=== PATIENT | female | born 1980 | race Native Hawaiian/Other Pacific Islander ===

== ENCOUNTER 2017-01-10 14:04 | Outpatient (CLI) | payer SELFPAY ==
[2017-01-10 15:10] VITALS: BP 124/83
== END 2017-01-10 15:47 | disposition home or self-care (01) ==
LOC: TRG 14:04
PROVIDERS: ATTEND Obstetrics & Gynecology
DX: O47.03 False labor before 37 completed weeks of gestation, third trimester (principal); Z3A.34 34 weeks gestation of pregnancy
CPT/HCPCS: 59025

== ENCOUNTER 2017-01-16 20:58 | Inpatient (IN) | payer OTHER ==
[2017-01-16] MEDS ORDERED: LACTATED RINGERS 1,000 ML IV ONE (21:29)
[2017-01-16 21:52] LABS: Hematocrit 37.9 % (30.3-42.9); Hemoglobin 12.8 gm/dl (10.1-14.3); Mean Corpuscular HGB Conc 34 % (30-34); Mean Corpuscular Hemoglobin 30 pg (28-32); Mean Corpuscular Volume 89 fl (79-97); Platelet Count 210 K/mm3 (140-440); Red Blood Count 4.29 M/mm3 (3.65-5.03); Red Cell Distribution Width 14.1 % (13.2-15.2); White Blood Count 11.2 K/mm3 (4.5-11.0)
[2017-01-16 22:16] LABS: Alanine Aminotransferase 13 units/L (7-56); Lactate Dehydrogenase 262 units/L (91-180); Uric Acid 6.9 mg/dL (3.5-7.6)
--- NOTE | 2017-01-16 22:24 | History and Physical Report ---
History of Present Illness Date of examination: 01/16/17 Chief complaint: Painful contractions History of present illness: 36-year-old at 35+ weeks presents with painful contractions and elevated blood pressure in the severe range, she has had limited PNC and is a drop in. Patient is a [place] speaker only, history from daughter who speaks [place]. She apparently has been seen at a [place] [facility] but has only been there for 3 visits. Patient admits to having elevated blood pressure during this , appears to have had no workup. She currently denies headaches, scotomata or epigastric discomfort In triage, her blood pressure is in the 170s over 100s On exam she is 4-5 cm with bloody show. Past History Past Medical History: no pertinent history Past Surgical History: no surgical history [employer] History: denies: chlamydia, gonorrhea, hepatitis B, hepatitis C, herpes, HIV , syphilis Social history: single, full code. denies: smoking, alcohol abuse, prescription drug abuse, IV drug use - Obstetrical History Expected Date of Delivery: 02/20/17 Actual Gestation: 35 Week(s) 0 Day(s) : 7 Para: 6 Medications and Allergies Allergies Allergy/AdvReac Type Severity Reaction Status Date / Time No Known Allergies Allergy Verified 01/16/17 21:32 Active Meds: Active Medications Lactated Ringer's (Lactated Ringers) 1,000 mls @ 999 mls/hr IV BOLUS ONE Stop: 01/16/17 22:29 Review of Systems Constitutional: no weight gain, no fever, no chills Eyes: no diplopia, no photophobia, no tunnel vision, no blind spots Cardiovascular: high blood pressure, no chest pain, no orthopnea, no palpitations, no syncope, no lightheadedness, no shortness of breath, no dyspnea on exertion Respiratory: no shortness of breath, no dyspnea on exertion Gastrointestinal: abdominal pain, no nausea, no vomiting - Vital Signs Vital signs: Vital Signs Pulse Pulse Ox 79 97 01/16/17 21:19 01/16/17 21:19 Temp Pulse Resp BP Pulse Ox 80 170/82 83 L 01/16/17 22:13 01/16/17 22:13 01/16/17 21:39 - Physical Exam Cardiovascular: Regular rate, Normal S1, Normal S2 Lungs: Positive: Clear to auscultation Abdomen: Positive: normal appearance, soft. Negative: distention, tenderness, guarding, rigidity Genitourinary (Female): Positive: normal external genitalia Uterus: Positive: enlarged (EFW ~ 3400) Adnexa: both: normal Extremities: Positive: normal Results Result Diagrams: 01/16/17 21:40 01/16/17 21:40 Abnormal lab results 01/16/17 01/16/17 Range/Units 21:40 21:40 WBC 11.2 H (4.5-11.0) K/mm3 Creatinine 0.5 L (0.7-1.2) mg/dL Lactate Dehydrogenase 262 H (91-180) units/L All other labs normal. Assessment and Plan A: 36-year-old at 35 weeks in active labor Issues -Severe range blood pressures ?Pre-E - [place] speaker only -Grand multiparity -Limited care, no records available at this time P: -Admit -IV antihypertensives -Will start magnesium per protocol -Epidural when necessary -Anticipate normal vaginal delivery - Patient Problems (1) 35 weeks gestation of Current Visit: Yes Status: Acute (2) Hypertension affecting in third trimester Current Visit: Yes Status: Acute (3) Grand multipara Current Visit: Yes Status: Acute (4) Limited care Current Visit: Yes Status: Acute Qualifiers: Trimester: T
[2017-01-16] MEDS ORDERED: ePHEDrine SULFATE IV PRN (22:26)
[2017-01-16] MEDS ORDERED: MINERAL OIL PO PRN (22:26)
[2017-01-16] MEDS ORDERED: XYLOCAINE 2% INFILTRATI ONE (22:26)
[2017-01-16] MEDS ORDERED: ZOFRAN IV PRN (22:26)
[2017-01-16] MEDS ORDERED: BRETHINE SUB-Q PRN (22:26)
[2017-01-16] MEDS ORDERED: POLYCILLIN/NS 2 GM/100 ML 2 GM/100 ML BAG IV ONE (22:26)
[2017-01-16] MEDS ORDERED: SUBLIMAZE IV PRN (22:26)
[2017-01-16] MEDS ORDERED: BRETHINE IVP PRN (22:26)
[2017-01-16] MEDS ORDERED: APRESOLINE IV PRN (22:29)
[2017-01-16] MEDS ORDERED: MAGNESIUM SULFATE 4GM/100ML 4 GM/100 ML BAG IV ONE (22:29)
[2017-01-16] MEDS ORDERED: PITOCin/NS 30 UNIT/500ML 30 UNITS/500 ML BAG IV SCH ×2 (23:00)
[2017-01-16] MEDS ORDERED: PITOCin/NS 20 UNIT/1000ML DRIP 20 UNITS/1,000 ML BAG IV SCH (23:00)
[2017-01-16] MEDS ORDERED: MAGNESIUM SULFATE 40GM/1000ML 40 GM/1,000 ML BAG IV SCH (23:00)
[2017-01-16] MEDS ORDERED: NORMODYNE PO SCH (23:00)
[2017-01-16] MEDS: LACTATED RINGERS 1,000 ML IV SCH (23:00)
[2017-01-16 23:36] LABS: Urine Drugs of Abuse Note Disclamer
[2017-01-16 23:54] LABS: Bacteria,Urine 1+ /HPF (Negative); Bilirubin,Urine NEG (Negative); Blood,Urine MOD (Negative); Ketones,Urine NEG (Negative); Leukocyte Esterase,Urine NEG (Negative); Nitrite,Urine NEG (Negative); Urobilinogen,Urine < 2.0 mg/dL (<2.0); WBC,Urine < 1.0 /HPF (0.0-6.0)
[2017-01-17 00:45] LABS: HIV-1 Antigen p24 N (Non React); HIVR-1/2 Ab N (Non React)
[2017-01-17] MEDS ORDERED: CELESTONE SOLUSPAN IM SCH ×2 (02:00→10:00)
[2017-01-17] MEDS ORDERED: METHERGINE IM ONE (02:12)
[2017-01-17] MEDS ORDERED: CYTOTEC ONE (02:13)
--- NOTE | 2017-01-17 02:21 | Procedure Note ---
OB Delivery Note - Delivery Date of Delivery: 01/17/17 Surgeon: PILI MENA Estimated blood loss: other (600 cc) - Vaginal Delivery presentation: vertex Delivery position: OA Intrapartum events: no care, precipitous labor- <3hr, hemorrhage Delivery induction: none Delivery monitor: external FHT, external uterine Route of delivery: Delivery placenta: spontaneous Delivery cord: 3 umbilical vessels Episiotomy: none Delivery laceration: none Anesthesia: none - Infant A at 1 minute: 8 at 5 minutes: 8 Gender: Male (time of delivery to 2:02 AM, infant weight 5 lbs. 4 oz. or 2381 g)
[2017-01-17] MEDS ORDERED: MILK OF MAGNESIA PO PRN (02:23)
[2017-01-17] MEDS ORDERED: ANUCORT-HC PR PRN (02:23)
[2017-01-17] MEDS ORDERED: PHENERGAN PO PRN (02:23)
[2017-01-17] MEDS ORDERED: LANSINOH TP PRN (02:23)
[2017-01-17] MEDS ORDERED: BENADRYL PO PRN (02:23)
[2017-01-17] MEDS ORDERED: CYTOTEC PR ONE ×2 (02:23→02:30)
[2017-01-17] MEDS ORDERED: ZOFRAN IV PRN (02:23)
[2017-01-17] MEDS ORDERED: DULCOLAX PR PRN (02:23)
[2017-01-17] MEDS ORDERED: TYLENOL PO PRN (02:23)
[2017-01-17] MEDS ORDERED: NORCO 5/325 PO PRN (02:23)
[2017-01-17] MEDS ORDERED: PHENERGAN PR PRN (02:23)
[2017-01-17] MEDS ORDERED: TUCKS PAD TP PRN (02:23)
[2017-01-17] MEDS ORDERED: METHERGINE IM PRN (02:23)
[2017-01-17] MEDS ORDERED: SOLARCAINE ALOE TP PRN (02:23)
[2017-01-17] MEDS ORDERED: POLYCILLIN/NS 1 GM/50 ML 1 GM/50 ML BAG IV SCH (02:30)
[2017-01-17] MEDS: LACTATED RINGERS 1,000 ML IV SCH (02:59)
[2017-01-17] MEDS ORDERED: SODIUM CHLORIDE FLUSH SYRINGE 10 ML IV PRN (03:00)
[2017-01-17] MEDS ORDERED: PITOCin/NS 20 UNIT/1000ML DRIP 20 UNITS/1,000 ML BAG IV SCH (03:00)
[2017-01-17] MEDS: MOTRIN PO SCH ×3 (03:00→18:41)
[2017-01-17] MEDS: PRENATAL VITAMIN PO SCH (10:33)
[2017-01-17] MEDS: FEOSOL PO SCH (10:34)
[2017-01-17] MEDS: COLACE PO SCH (10:34)
[2017-01-17] MEDS: NORMODYNE PO SCH (11:07)
[2017-01-17] MEDS: SENOKOT S PO SCH (11:07)
[2017-01-17 15:19] LABS: Hematocrit 27.6 % (30.3-42.9); Hemoglobin 9.4 gm/dl (10.1-14.3)
[2017-01-18] MEDS ORDERED: M-M-R II VACCINE SUB-Q ONE (02:23)
[2017-01-18] MEDS ORDERED: BOOSTRIX IM ONE (06:00)
[2017-01-18] MEDS: MOTRIN PO SCH ×3 (07:00→13:00)
[2017-01-18] MEDS: COLACE PO SCH ×3 (07:06→22:59)
[2017-01-18] MEDS: NORMODYNE PO SCH ×3 (07:07→22:58)
[2017-01-18] MEDS: FEOSOL PO SCH ×2 (12:59→22:59)
[2017-01-18] MEDS: PRENATAL VITAMIN PO SCH (13:00)
[2017-01-18] MEDS: SENOKOT S PO SCH ×2 (14:25→22:57)
[2017-01-19] MEDS: MOTRIN PO SCH ×3 (04:59→13:00)
[2017-01-19] MEDS: COLACE PO SCH (10:34)
[2017-01-19] MEDS: PRENATAL VITAMIN PO SCH (10:34)
[2017-01-19] MEDS: NORMODYNE PO SCH (10:34)
[2017-01-19] MEDS: FEOSOL PO SCH (10:47)
--- NOTE | 2017-01-19 11:12 | Progress Note ---
Assessment and Plan - Patient Problems (1) (normal spontaneous vaginal delivery) Onset Date: 01/19/17 Current Visit: Yes Status: Resolved Plan to address problem: A: S/P - PPD #1 Doing well PIH - stable on Labetolol 200mg BID Asymptomatic anemia - stable P: May go home today (2) Acute blood loss anemia Onset Date: 01/19/17 Current Visit: Yes Status: Resolved Subjective - Subjective Date of service: 01/19/17 Principal diagnosis: s/p - PPD #2 Interval history: No complaints. Bleeding improved. Patient reports: appetite normal, voiding normally, pain well controlled, ambulating normally [place]: doing well, in NICU Objective - Vital Signs Latest vital signs: Vital Signs Temp Pulse Resp BP 01/19/17 10:34 66 120/67 01/19/17 10:25 98.6 F 66 18 120/67 01/19/17 08:21 98.4 F 78 20 108/64 01/19/17 04:15 98.4 F 64 20 119/59 01/18/17 23:57 98.6 F 65 20 107/64 01/18/17 22:58 80 113/79 01/18/17 20:00 98.5 F 76 20 113/79 01/18/17 17:05 98.7 F 84 20 104/64 01/18/17 13:35 98.0 F 86 20 110/52 01/18/17 13:04 68 119/66 Intake and Output 01/18/17 01/19/17 01/19/17 22:59 06:59 14:59 Intake Total 240 360 240 Balance 240 360 240 Intake: Oral 240 360 240 Other: Total, Intake Amount 240 120 240 # Voids Void 1 1 1 - Exam Breasts: Present: deferred Cardiovascular: Present: Regular rate Lungs: Present: Clear to auscultation Abdomen: Present: normal appearance, soft Uterus: Present: normal, firm, fundal height below umbilicus Extremities: Present: normal - Labs Labs: Laboratory Tests 01/16/17 01/16/17 01/16/17 02:40 02:40 02:40 WBC RBC Hgb Hct MCV MCH MCHC RDW Plt Count Creatinine Estimated GFR Uric Acid Magnesium AST ALT Lactate Dehydrogenase Urine Color Urine Turbidity Urine pH Ur Specific Shade Urine Protein Urine Glucose (UA) Urine Ketones Urine Blood Urine Nitrite Urine Bilirubin Urine Urobilinogen Ur Leukocyte Esterase Urine WBC (Auto) Urine RBC (Auto) Urine Bacteria (Auto) Urine Opiates Screen Urine Methadone Screen Ur Barbiturates Screen Ur Phencyclidine Scrn Ur Amphetamines Screen U Benzodiazepines Scrn Urine Cocaine Screen U Marijuana (THC) Screen Drugs of Abuse Note RPR Nonreactive Hep Bs Antigen Non-reactive Hepatitis C Antibody Non-reactive HIV 1&2 Antibody Rapid HIV P24 Antigen Rubella IgG Antibody Immune Blood Type Antibody Screen JASPREET Antibody Screen 01/16/17 01/16/17 01/16/17 02:40 02:40 21:40 WBC 11.2 H RBC 4.29 Hgb 12.8 Hct 37.9 MCV 89 MCH 30 MCHC 34 RDW 14.1 Plt Count 210 Creatinine Estimated GFR Uric Acid Magnesium AST ALT Lactate Dehydrogenase Urine Color Urine Turbidity Urine pH Ur Specific Shade Urine Protein Urine Glucose (UA) Urine Ketones Urine Blood Urine Nitrite Urine Bilirubin Urine Urobilinogen Ur Leukocyte Esterase Urine WBC (Auto) Urine RBC (Auto) Urine Bacteria (Auto) Urine Opiates Screen Urine Methadone Screen Ur Barbiturates Screen Ur Phencyclidine Scrn Ur Amphetamines Screen U Benzodiazepines Scrn Urine Cocaine Screen U Marijuana (THC) Screen Drugs of Abuse Note RPR Hep Bs Antigen Hepatitis C Antibody HIV 1&2 Antibody Rapid N HIV P24 Antigen N Rubella IgG Antibody Blood Type O POSITIVE Antibody Screen TNR JASPREET Antibody Screen Negative 01/16/17 01/16/17 01/16/17 21:40 22:49 22:49 WBC RBC Hgb Hct MCV MCH MCHC RDW Plt Count Creatinine 0.5 L Estimated GFR > 60 Uric Acid 6.9 Magnesium AST 21 ALT 13 Lactate Dehydrogenase 262 H Urine Color Straw Urine Turbidity Clear Urine pH 5.0 Ur Specific Shade 1.003 Urine Protein 30 mg/dl Urine Glucose (UA) Neg Urine Ketones Neg Urine Blood Mod Urine Nitrite Neg Urine Bilirubin Neg Urine Urobilinogen < 2.0 Ur Leukocyte Esterase Neg Urine WBC (Auto) < 1.0 Urine RBC (Auto) 2.0 Urine Bacteria (Auto) 1+ Urine Opiates Screen Presumptive negative Urine Methadone Screen Presumptive negative Ur Barbiturates Screen Presumptive negative Ur Phencyclidine Scrn Presumptive negative Ur Amphetamines Screen Presumptive negative U Benzodiazepines Scrn Presumptive negative Urine Cocaine Screen Presumptive negative U Marijuana (THC) Screen Presumptive negative Drugs of Abuse Note Disclamer RPR Hep Bs Antigen Hepatitis C Antibody HIV 1&2 Antibody Rapid HIV P24 Antigen Rubella IgG Antibody Blood Type Antibody Screen JASPREET Antibody Screen 01/17/17 01/17/17 06:24 15:02 WBC RBC Hgb 9.4 L D Hct 27.6 L D MCV MCH MCHC RDW Plt Count Creatinine Estimated GFR Uric Acid Magnesium 5.40 H AST ALT Lactate Dehydrogenase Urine Color Urine Turbidity Urine pH Ur Specific Shade Urine Protein Urine Glucose (UA) Urine Ketones Urine Blood Urine Nitrite Urine Bilirubin Urine Urobilinogen Ur Leukocyte Esterase Urine WBC (Auto) Urine RBC (Auto) Urine Bacteria (Auto) Urine Opiates Screen Urine Methadone Screen Ur Barbiturates Screen Ur Phencyclidine Scrn Ur Amphetamines Screen U Benzodiazepines Scrn Urine Cocaine Screen U Marijuana (THC) Screen Drugs of Abuse Note RPR Hep Bs Antigen Hepatitis C Antibody HIV 1&2 Antibody Rapid HIV P24 Antigen Rubella IgG Antibody Blood Type Antibody Screen JASPREET Antibody Screen
--- NOTE | 2017-01-19 11:31 | Discharge Summary ---
Providers - Providers Date of Admission: 01/16/17 22:35 Date of discharge: 01/19/17 Attending physician: GEORGIA RIZO MD Primary care physician: GEORGIA RIZO MD Hospitalization Reason for admission: active labor, IUP at term Delivery: Episiotomy: none Laceration: none Other procedures: none complications: none Discharge diagnosis: IUP at term delivered baby: male Hospital course: Unremarkable except for elevated BP's controlled with Labetolol 200mg BID. Condition at discharge: Good Disposition: DC-01 TO HOME OR SELFCARE - Discharge Diagnoses (1) (normal spontaneous vaginal delivery) Status: Resolved (2) Acute blood loss anemia Status: Resolved Plan - Discharge Medications Prescriptions: Ibuprofen [Motrin 600 MG tab] 600 mg PO Q8H PRN #30 tablet PRN Reason: Pain Labetalol [Normodyne TAB] 200 mg PO BID #60 tablet Multivitamin with Iron [Multivitamins with Iron] 1 each PO DAILY #30 tablet - Provider Discharge Summary Activity: routine, no sex for 6 weeks, no heavy lifting 4 weeks, no strenuous exercise Diet: routine Instructions: routine Additional instructions: [] Smoking cessation referral if applicable(refer to patient education folder for contact #) [] Refer to [facility] Booklet Call your doctor immediately for: * Fever > 100.5 * Heavy vaginal bleeding ( >1 pad per hour) * Severe persistent headache * Shortness of breath * Reddened, hot, painful area to leg or breast * Drainage or odor from incision. * Keep incision clean and dry at all times and follow doctor's instructions regarding bathing/showering Follow up in office in 1 week for BP check - Follow up plan Follow up: GEORGIA SCHUMACHER MD [Primary Care Provider] - 7 Days Forms: DARRIUS Discharge Summary
[2017-01-19 15:11] VITALS: BP 106/58
== END 2017-01-19 13:50 | disposition home or self-care (01) | DRG 774 ==
LOC: TRG 20:58 → LD 22:35 → OB 01-17 07:32
PROVIDERS: ADMIT Obstetrics & Gynecology; ATTEND Obstetrics & Gynecology
PROC: 10E0XZZ Delivery of Products of Conception, External Approach (ICD-10-PCS; principal; 2017-01-19)
DX: O16.3 Unspecified maternal hypertension, third trimester (principal); O72.1 Other immediate postpartum hemorrhage; D62 Acute posthemorrhagic anemia; Z3A.35 35 weeks gestation of pregnancy; Z37.0 Single live birth; O09.43 Supervision of pregnancy with grand multiparity, third trimester; O90.81 Anemia of the puerperium
CPT/HCPCS: 36415; 80307; 81001; 82565; 83615; 83735; 84450; 84460; 84550; 85014; 85018; 85027; 86592; 86706; 86762; 86803; 86850; 86900; 86901; 87806; 90707; 99211; G0463; J0290; J2210; J2590; J3475; J7120

== ENCOUNTER 2017-04-04 17:07 | Inpatient (IN) | payer OTHER ==
[2017-04-04 18:31] LABS: Basophils % (Auto) 0.3 % (0.0-1.8); Hematocrit 36.9 % (30.3-42.9); Hemoglobin 11.8 gm/dl (10.1-14.3); Mean Corpuscular HGB Conc 32 % (30-34); Mean Corpuscular Volume 76 fl (79-97); Platelet Count 275 K/mm3 (140-440); Red Blood Count 4.84 M/mm3 (3.65-5.03); Red Cell Distribution Width 19.2 % (13.2-15.2); White Blood Count 4.1 K/mm3 (4.5-11.0)
[2017-04-04 18:38] LABS: Mean Corpuscular Hemoglobin 24 pg (28-32)
[2017-04-04 18:51] LABS: Bacteria,Urine 4+ /HPF (Negative); Bilirubin,Urine NEG (Negative); Blood,Urine NEG (Negative); Ketones,Urine NEG (Negative); Leukocyte Esterase,Urine SM (Negative); Mucus,Urine FEW /HPF; Nitrite,Urine POS (Negative); Protein,Urine <15 mg/dL mg/dL (Negative); RBC,Urine < 1.0 /HPF (0.0-6.0); Urobilinogen,Urine < 2.0 mg/dL (<2.0)
[2017-04-04 18:53] LABS: Albumin 4.5 g/dL (3.9-5); Albumin/Globulin Ratio 1.5 %; Alkaline Phosphatase 227 units/L (35-129); Anion Gap 19 mmol/L; BUN/Creatinine Ratio 23; Blood Urea Nitrogen 7 mg/dL (7-17); Calcium 9.2 mg/dL (8.4-10.2); Carbon Dioxide 23 mmol/L (22-30); Chloride 100.1 mmol/L (98-107); Glucose 107 mg/dL (65-100); Lipase 53 units/L (13-60); Potassium 3.9 mmol/L (3.6-5.0); Sodium 138 mmol/L (137-145); Total Protein 7.5 g/dL (6.3-8.2)
[2017-04-04 19:17] LABS: Alanine Aminotransferase 2730 units/L (7-56)
[2017-04-05] MEDS ORDERED: NACL 0.9% 1000 ML 1,000 ML IV ONE (06:21)
[2017-04-05] MEDS ORDERED: NACL ONE (06:38)
[2017-04-05 07:46] LABS: INR 1.02 (0.87-1.13)
[2017-04-05 07:47] LABS: Partial Thromboplastin Time 33.4 Sec. (24.2-36.6)
--- NOTE | 2017-04-05 08:44 | Cat Scan Report ---
CT ABDOMEN AND PELVIS WITH CONTRAST INDICATION: Abdominal pain, jaundice. COMPARISON: None similar. FINDINGS: Abdomen and pelvis CT performed following intravenous administration of 100 cc of Omnipaque 300. LUNG BASES: Nonspecific distal esophageal wall prominence/thickening, not excluded for gastroesophageal reflux and/or hiatal hernia, amongst others. Right hemidiaphragm minimally elevated. ABDOMEN: Contracted gallbladder with surrounding hypodense fluid extending to jeff hepatis. Patent veins. Tiny splenic calcified granuloma. Otherwise unremarkable spleen, liver, pancreas, adrenals, aorta, IVC and kidneys. Nonopacified GI tract evaluation limited, though grossly nonobstructive. As on axial images 90-140, series 2, slight exaggerated duodenal wall thickness/prominence may be secondary to suboptimal distention versus extension from adjacent gallbladder/jeff hepatis. No significant ascites. Few subcentimeter mesenteric lymph nodes. Normal appendix. Normal caliber colon. Mild ascending colon stool. PELVIS: Urinary bladder, uterus, adnexa/ovaries and rectosigmoid within normal limits. No free fluid or size significant adenopathy. Mild sclerosis along iliac aspect of SI joints noted. CONCLUSION: 1. Contracted gallbladder with surrounding fluid. Acute cholecystitis may be correlated for clinically in an appropriate setting. No radiopaque gallstones or significant biliary or pancreatic duct dilation though identified. 2. Few other incidental findings, as above. Thank you for the opportunity to participate in this patient's care.
[2017-04-05] MEDS ORDERED: DULCOLAX PR PRN (09:31)
[2017-04-05] MEDS ORDERED: ZOFRAN IM PRN (10:14)
--- NOTE | 2017-04-05 10:16 | History and Physical Report ---
<BISI DAMON - Last Filed: 04/05/17 15:02> History of Present Illness Date of examination: 04/05/17 Date of admission: 04/05/2017 Chief complaint: Jaundice History of present illness: Patient is a 36 years old female with past medical history of hypertension and two month of who presents to the emergency department with chief complaint of Jaundice. Patient noticed days ago changed her eyes color to yellow and she was hoping that they will clear up eventually, but they get worst. Patient went yesterday to her primary care provider and was referred to [facility] for jaundice, hypertension, and increased bilirubin. She also reported severe pruritis for the past 3 days. Patient two month with 8 month premature healthy baby, she stated that she had UTI and hypertension while in . She defines abdominal pain at present time.She denies a recent history of fever, diarrhea, hemoptysis, melena, or hematochezia. She denies a known history of hemorrhoids, diverticulitis, colon cancer, peptic ulcer disease, gastritis, acid reflux, gall bladder disease or cholelithiasis. She denies a history of smoking or alcohol consumption. Past History Past Medical History: hypertension Past Surgical History: No surgical history Social history: lives with family. denies: smoking, alcohol abuse Family history: hypertension Medications and Allergies Allergies Allergy/AdvReac Type Severity Reaction Status Date / Time No Known Allergies Allergy Verified 04/04/17 18:04 Home Medications Medication Instructions Recorded Confirmed Last Taken Type No Known Home Medications [No 04/05/17 04/05/17 Unknown History Reported Home Medications] Active Meds: Active Medications Bisacodyl (Dulcolax) 10 mg [place] QDAY PRN PRN Reason: Constipation unrelieved by MOM Enoxaparin Sodium (Lovenox) 40 mg SUB-Q QDAY KOLBY Sodium Chloride (Nacl 0.9% 1000 Ml) 1,000 mls @ 125 mls/hr IV ONCE ONE Stop: 04/05/17 14:20 Last Admin: 04/05/17 06:34 Dose: 125 mls/hr Sodium Chloride (Nacl 0.9% 1000 Ml) 1,000 mls @ 100 mls/hr IV DIRECT KOLBY Ondansetron HCl (Zofran) 4 mg IM Q4H PRN PRN Reason: Nausea And Vomiting Review of Systems Constitutional: no weight gain, no fever, no sweats Eyes: bilateral: itching, other (jaundice) Ears, nose, mouth and throat: no ear discharge, no tinnitis, no decreased hearing, no nose pain, no nasal congestion Breasts: no change in shape, no swelling Cardiovascular: no chest pain, no orthopnea, no palpitations, no rapid/ irregular heart beat, no edema, no syncope Respiratory: no cough with sputum, no excessive sputum, no hemoptysis, no shortness of breath Gastrointestinal: jaundice, no diarrhea, no constipation, no change in bowel habits, no hematemesis, no coffee ground emesis, no hematochezia Genitourinary Female: no menorrhagia, no dysuria, no urinary frequency, no urgency, no stress incontinence Musculoskeletal: no shooting arm pain, no arm numbness/tingling, no low back pain, no shooting leg pain Integumentary: pruritis, jaundice, no redness, no sores Neurological: no weakness, no parathesias, no numbness, no tingling, no seizures Psychiatric: no change in sleep habits, no sleep disturbances, no insomnia, no hypersomnia, no change in appetite Endocrine: no excessive thirst, no polydipsia, no polyuria, no nocturia Hematologic/Lymphatic: no easy bruising, no easy bleeding Allergic/Immunologic: no urticaria, no allergic rhinitis Exam - Constitutional Vitals: Temp Pulse Resp BP Pulse Ox 98.4 F 54 L 24 138/74 100 04/05/17 05:42 04/05/17 06:00 04/05/17 06:00 04/05/17 06:00 04/05/17 06:00 General appearance: Present: no acute distress - EENT Eyes: Present: PERRL ENT: hearing intact, other (jaundice) - Neck Neck: Present: supple - Respiratory Respiratory effort: normal Respiratory: bilateral: CTA - Cardiovascular Rhythm: regular Heart Sounds: Present: S1 & S2 - Abdominal General gastrointestinal: Present: soft, non-tender Female genitourinary: Present: deferred - Rectal Rectal Exam: deferred - Integumentary Integumentary: Present: clear, warm, dry - Musculoskeletal Musculoskeletal: strength equal bilaterally - Psychiatric Psychiatric: appropriate mood/affect - Neurologic Neurologic: CNII-XII intact - Allied Health Allied health notes reviewed: nursing Results - Labs CBC & Chem 7: 04/04/17 18:20 04/04/17 18:20 Labs: Laboratory Last Values WBC 4.1 K/mm3 (4.5-11.0) L 04/04/17 18:20 RBC 4.84 M/mm3 (3.65-5.03) 04/04/17 18:20 Hgb 11.8 gm/dl (10.1-14.3) 04/04/17 18:20 Hct 36.9 % (30.3-42.9) 04/04/17 18:20 MCV 76 fl (79-97) L 04/04/17 18:20 MCH 24 pg (28-32) L 04/04/17 18:20 MCHC 32 % (30-34) 04/04/17 18:20 RDW 19.2 % (13.2-15.2) H 04/04/17 18:20 Plt Count 275 K/mm3 (140-440) 04/04/17 18:20 Lymph % (Auto) 32.6 % (13.4-35.0) 04/04/17 18:20 [place] % (Auto) 10.0 % (0.0-7.3) H 04/04/17 18:20 Eos % (Auto) 0.0 % (0.0-4.3) 04/04/17 18:20 Baso % (Auto) 0.3 % (0.0-1.8) 04/04/17 18:20 Lymph # 1.3 K/mm3 (1.2-5.4) 04/04/17 18:20 [place] # 0.4 K/mm3 (0.0-0.8) 04/04/17 18:20 Eos # 0.0 K/mm3 (0.0-0.4) 04/04/17 18:20 Baso # 0.0 K/mm3 (0.0-0.1) 04/04/17 18:20 Seg Neutrophils % 57.1 % (40.0-70.0) 04/04/17 18:20 Seg Neutrophils # 2.4 K/mm3 (1.8-7.7) 04/04/17 18:20 PT 13.9 Sec. (12.2-14.9) 04/05/17 07:24 INR 1.02 (0.87-1.13) 04/05/17 07:24 APTT 33.4 Sec. (24.2-36.6) 04/05/17 07:24 Sodium 138 mmol/L (137-145) 04/04/17 18:20 Potassium 3.9 mmol/L (3.6-5.0) 04/04/17 18:20 Chloride 100.1 mmol/L (98-107) 04/04/17 18:20 Carbon Dioxide 23 mmol/L (22-30) 04/04/17 18:20 Anion Gap 19 mmol/L 04/04/17 18:20 BUN 7 mg/dL (7-17) 04/04/17 18:20 Creatinine 0.3 mg/dL (0.7-1.2) L 04/04/17 18:20 Estimated GFR > 60 ml/min 04/04/17 18:20 BUN/Creatinine Ratio 23 % 04/04/17 18:20 Glucose 107 mg/dL (65-100) H 04/04/17 18:20 Calcium 9.2 mg/dL (8.4-10.2) 04/04/17 18:20 Magnesium 1.90 mg/dL (1.7-2.3) 04/05/17 07:24 Total Bilirubin 6.20 mg/dL (0.1-1.2) H 04/04/17 18:20 AST 1857 units/L (5-40) H 04/04/17 18:20 ALT 2730 units/L (7-56) H 04/04/17 18:20 Alkaline Phosphatase 227 units/L (35-129) H 04/04/17 18:20 Ammonia 29.0 umol/L (25-60) 04/05/17 07:24 Total Protein 7.5 g/dL (6.3-8.2) 04/04/17 18:20 Albumin 4.5 g/dL (3.9-5) 04/04/17 18:20 Albumin/Globulin Ratio 1.5 % 04/04/17 18:20 Lipase 53 units/L (13-60) 04/04/17 18:20 Urine Color June (Yellow) 04/04/17 Unknown Urine Turbidity Clear (Clear) 04/04/17 Unknown Urine pH 6.0 (5.0-7.0) 04/04/17 Unknown Ur Specific [place] 1.008 (1.003-1.030) 04/04/17 Unknown Urine Protein <15 mg/dl mg/dL (Negative) 04/04/17 Unknown Urine Glucose (UA) Neg mg/dL (Negative) 04/04/17 Unknown Urine Ketones Neg mg/dL (Negative) 04/04/17 Unknown Urine Blood Neg (Negative) 04/04/17 Unknown Urine Nitrite Pos (Negative) 04/04/17 Unknown Urine Bilirubin Neg (Negative) 04/04/17 Unknown Urine Urobilinogen < 2.0 mg/dL (<2.0) 04/04/17 Unknown Ur Leukocyte Esterase Sm (Negative) 04/04/17 Unknown Urine WBC (Auto) 13.0 /HPF (0.0-6.0) H 04/04/17 Unknown Urine RBC (Auto) < 1.0 /HPF (0.0-6.0) 04/04/17 Unknown U Epithel Cells (Auto) 1.0 /HPF (0-13.0) 04/04/17 Unknown Urine Bacteria (Auto) 4+ /HPF (Negative) 04/04/17 Unknown Urine Mucus Few /HPF 04/04/17 Unknown Hepatitis A IgM Ab Non-reactive (NonReactive) 04/05/17 07:24 Hep Bs Antigen Non-reactive (Negative) 04/05/17 07:24 Hep B Core IgM Ab Non-reactive (NonReactive) 04/05/17 07:24 Hepatitis C Antibody Non-reactive (NonReactive) 04/05/17 07:24 - Imaging and Cardiology CT scan - abdomen: image reviewed (contracted gallbladder with surrounding fluid. Acute cholecystitis) Assessment and Plan Assessment and plan: Patient is a 36 years old female with past medical history of hypertension and two month of who presents to the emergency department with chief complaint of Jaundice. Patient noticed days ago changed her eyes color to yellow and she was hoping that they will clear up eventually, but they get worst. Patient went yesterday to her primary care provider and was referred to [facility] for jaundice, hypertension, and increased bilirubin. Acute cholecystitis Contracted gallbladder with surrounding fluid. Acute cholecystitis Nothing by mouth IV fluid hydration Initiated empiric IV Zosyn contracted gallbladder with surrounding fluid. Acute cholecystitis HIDA scan ordered we will consider General surgery after findings. GI consulted Transaminitis Etiology unknown Closely monitor liver function GI consulted Jaundice and pruritis Secondary to Transaminitis Closely monitor liver function Benadryl for itching GI Consulted Hypertension. Continue on home antihypertensive medication Closely monitor blood pressure Status post Patient delivered two month ago OBGYN consulted DVT prophylaxis Lovenox Advance Directives: Yes VTE prophylaxis?: Chemical Contraindication Mechanical VTE Prophylaxis: Treatment Not Indicated Plan of care discussed with patient/family: Yes <MAC NARVAEZ Karen - Last Filed: 04/05/17 23:08> History of Present Illness Date of admission: 04/05/17 09:32 Medications and Allergies Active Meds: Active Medications Bisacodyl (Dulcolax) 10 mg WV QDAY PRN PRN Reason: Constipation unrelieved by MOM Diphenhydramine HCl (Benadryl) 25 mg IV Q6H PRN PRN Reason: Itching Enoxaparin Sodium (Lovenox) 40 mg SUB-Q QDAY KOLBY Last Admin: 04/05/17 11:29 Dose: Not Given Sodium Chloride (Nacl 0.9% 1000 Ml) 1,000 mls @ 100 mls/hr IV DIRECT KOLBY Piperacillin Sod/Tazobactam Sod (Zosyn/Ns 4.5gm/100ml) 4.5 gm in 100 mls @ 200 mls/hr IV Q8HR KOLBY PRN Reason: Protocol Labetalol HCl (Normodyne) 100 mg PO BID KOLBY Ondansetron HCl (Zofran) 4 mg IM Q4H PRN PRN Reason: Nausea And Vomiting Exam - Constitutional Vitals: Temp Pulse Resp BP Pulse Ox 98.8 F 59 L 18 109/54 99 04/05/17 22:02 04/05/17 22:02 04/05/17 22:02 04/05/17 22:02 04/05/17 22:02 Results - Labs CBC & Chem 7: 04/04/17 18:20 04/04/17 18:20 Labs: Laboratory Last Values WBC 4.1 K/mm3 (4.5-11.0) L 04/04/17 18:20 RBC 4.84 M/mm3 (3.65-5.03) 04/04/17 18:20 Hgb 11.8 gm/dl (10.1-14.3) 04/04/17 18:20 Hct 36.9 % (30.3-42.9) 04/04/17 18:20 MCV 76 fl (79-97) L 04/04/17 18:20 MCH 24 pg (28-32) L 04/04/17 18:20 MCHC 32 % (30-34) 04/04/17 18:20 RDW 19.2 % (13.2-15.2) H 04/04/17 18:20 Plt Count 275 K/mm3 (140-440) 04/04/17 18:20 Lymph % (Auto) 32.6 % (13.4-35.0) 04/04/17 18:20 [place] % (Auto) 10.0 % (0.0-7.3) H 04/04/17 18:20 Eos % (Auto) 0.0 % (0.0-4.3) 04/04/17 18:20 Baso % (Auto) 0.3 % (0.0-1.8) 04/04/17 18:20 Lymph # 1.3 K/mm3 (1.2-5.4) 04/04/17 18:20 [place] # 0.4 K/mm3 (0.0-0.8) 04/04/17 18:20 Eos # 0.0 K/mm3 (0.0-0.4) 04/04/17 18:20 Baso # 0.0 K/mm3 (0.0-0.1) 04/04/17 18:20 Seg Neutrophils % 57.1 % (40.0-70.0) 04/04/17 18:20 Seg Neutrophils # 2.4 K/mm3 (1.8-7.7) 04/04/17 18:20 PT 13.9 Sec. (12.2-14.9) 04/05/17 21:18 INR 1.02 (0.87-1.13) 04/05/17 21:18 APTT 33.4 Sec. (24.2-36.6) 04/05/17 07:24 Sodium 138 mmol/L (137-145) 04/04/17 18:20 Potassium 3.9 mmol/L (3.6-5.0) 04/04/17 18:20 Chloride 100.1 mmol/L (98-107) 04/04/17 18:20 Carbon Dioxide 23 mmol/L (22-30) 04/04/17 18:20 Anion Gap 19 mmol/L 04/04/17 18:20 BUN 7 mg/dL (7-17) 04/04/17 18:20 Creatinine 0.3 mg/dL (0.7-1.2) L 04/04/17 18:20 Estimated GFR > 60 ml/min 04/04/17 18:20 BUN/Creatinine Ratio 23 % 04/04/17 18:20 Glucose 107 mg/dL (65-100) H 04/04/17 18:20 Calcium 9.2 mg/dL (8.4-10.2) 04/04/17 18:20 Magnesium 1.90 mg/dL (1.7-2.3) 04/05/17 07:24 Total Bilirubin 6.20 mg/dL (0.1-1.2) H 04/04/17 18:20 AST 1857 units/L (5-40) H 04/04/17 18:20 ALT 2730 units/L (7-56) H 04/04/17 18:20 Alkaline Phosphatase 227 units/L (35-129) H 04/04/17 18:20 Ammonia 29.0 umol/L (25-60) 04/05/17 07:24 Total Protein 7.5 g/dL (6.3-8.2) 04/04/17 18:20 Albumin 4.5 g/dL (3.9-5) 04/04/17 18:20 Albumin/Globulin Ratio 1.5 % 04/04/17 18:20 Lipase 53 units/L (13-60) 04/04/17 18:20 Urine Color June (Yellow) 04/04/17 Unknown Urine Turbidity Clear (Clear) 04/04/17 Unknown Urine pH 6.0 (5.0-7.0) 04/04/17 Unknown Ur Specific [place] 1.008 (1.003-1.030) 04/04/17 Unknown Urine Protein <15 mg/dl mg/dL (Negative) 04/04/17 Unknown Urine Glucose (UA) Neg mg/dL (Negative) 04/04/17 Unknown Urine Ketones Neg mg/dL (Negative) 04/04/17 Unknown Urine Blood Neg (Negative) 04/04/17 Unknown Urine Nitrite Pos (Negative) 04/04/17 Unknown Urine Bilirubin Neg (Negative) 04/04/17 Unknown Urine Urobilinogen < 2.0 mg/dL (<2.0) 04/04/17 Unknown Ur Leukocyte Esterase Sm (Negative) 04/04/17 Unknown Urine WBC (Auto) 13.0 /HPF (0.0-6.0) H 04/04/17 Unknown Urine RBC (Auto) < 1.0 /HPF (0.0-6.0) 04/04/17 Unknown U Epithel Cells (Auto) 1.0 /HPF (0-13.0) 04/04/17 Unknown Urine Bacteria (Auto) 4+ /HPF (Negative) 04/04/17 Unknown Urine Mucus Few /HPF 04/04/17 Unknown Urine HCG, Qual Negative (Negative) 04/05/17 16:50 Acetaminophen < 15.0 ug/mL (10.0-30.0) 04/05/17 21:18 Hepatitis A IgM Ab Non-reactive (NonReactive) 04/05/17 07:24 Hep Bs Antigen Non-reactive (Negative) 04/05/17 07:24 Hep B Core IgM Ab Non-reactive (NonReactive) 04/05/17 07:24 Hepatitis C Antibody Non-reactive (NonReactive) 04/05/17 07:24 Assessment and Plan Assessment and plan: I saw and evaluated the patient. I agree with the findings and the plan of care as documented in the Nurse Practitioner's~note, with the following corrections and additions. Patient seen and examined, jaundiced. differential inlcudes post liver disease, post eclamsia although less likely. Will await [facility] evaluation and GI eval. empiric abx.
[2017-04-05] MEDS: LOVENOX SUB-Q SCH (11:29)
[2017-04-05] MEDS ORDERED: BENADRYL IV PRN (14:20)
--- NOTE | 2017-04-05 15:18 | Emergency Department Report ---
ED General Adult HPI - General Chief complaint: Abdominal Pain Stated complaint: HIGH BLOOD PRESSURE Time Seen by Provider: 04/05/17 06:20 Source: patient, family Mode of arrival: Ambulatory Limitations: Language Barrier - History of Present Illness Initial comments: The patient was seen by her primary care provider noticed that she was jaundice and told her she should seek emergency department evaluation. She complains of some epigastric discomfort but largely her jaundice has been painless. She is 2 months or down. She has a history of hypertension on labetalol. He states that she has had the onset of her menses since her car around last week. She has had some generalized pruritus. She does not complain of nausea or vomiting. She is from [place] but has not recently traveled. -: days(s) Location: abdomen Radiation: non-radiation Severity scale (0 -10): 4 Quality: aching Consistency: intermittent, now resolved Improves with: none Worsens with: none Associated Symptoms: nausea/vomiting (no vomiting occasional nausea). denies: fever/chills Treatments Prior to Arrival: none - Related Data Home Medications Medication Instructions Recorded Confirmed Last Taken No Known Home Medications [No 04/05/17 04/05/17 Unknown Reported Home Medications] Allergies Allergy/AdvReac Type Severity Reaction Status Date / Time No Known Allergies Allergy Verified 04/04/17 18:04 ED Review of Systems ROS: Stated complaint: HIGH BLOOD PRESSURE Other details as noted in HPI Constitutional: denies: chills, fever Eyes: denies: eye pain, eye discharge, vision change ENT: denies: ear pain, throat pain Respiratory: denies: cough, shortness of breath, wheezing Cardiovascular: denies: chest pain, palpitations Endocrine: no symptoms reported Gastrointestinal: abdominal pain, nausea. denies: diarrhea Genitourinary: denies: urgency, dysuria, discharge Musculoskeletal: denies: back pain, joint swelling, arthralgia Skin: denies: rash, lesions Neurological: denies: headache, weakness, paresthesias Psychiatric: denies: anxiety, depression Hematological/Lymphatic: denies: easy bleeding, easy bruising ED Past Medical Hx - Past Medical History Previous Medical History?: No Hx Hypertension: No Hx Congestive Heart Failure: No Hx Diabetes: No Hx Deep Vein Thrombosis: No Hx Renal Disease: No Hx Sickle Cell Disease: No Hx Seizures: No Hx Asthma: No Hx COPD: No Hx HIV: No - Surgical History Past Surgical History?: No - Social History Smoking Status: Never Smoker Substance Use Type: None - Medications Home Medications: Home Medications Medication Instructions Recorded Confirmed Last Taken Type No Known Home Medications [No 04/05/17 04/05/17 Unknown History Reported Home Medications] ED Physical Exam - General Limitations: No Limitations General appearance: alert, in no apparent distress - Head Head exam: Present: atraumatic, normocephalic - Eye Eye exam: Present: normal appearance - ENT ENT exam: Present: mucous membranes moist - Neck Neck exam: Present: normal inspection - Respiratory Respiratory exam: Present: normal lung sounds bilaterally. Absent: respiratory distress - Cardiovascular Cardiovascular Exam: Present: regular rate, normal rhythm. Absent: systolic murmur, diastolic murmur, rubs, gallop - GI/Abdominal GI/Abdominal exam: Present: soft, normal bowel sounds. Absent: distended, tenderness, guarding, rebound, rigid, organomegaly, mass, bruit, pulsatile mass , hernia - Extremities Exam Extremities exam: Present: normal inspection - Back Exam Back exam: Present: normal inspection - Neurological Exam Neurological exam: Present: alert, oriented X3, CN II-XII intact. Absent: motor sensory deficit - Psychiatric Psychiatric exam: Present: normal affect, normal mood - Skin Skin exam: Present: warm, dry, intact, normal color. Absent: rash ED Course Vital Signs 04/04/17 04/05/17 04/05/17 18:04 01:30 05:30 Temperature 99.5 F 99.0 F Pulse Rate 72 74 Respiratory 18 12 Rate Blood Pressure 128/81 161/91 Blood Pressure [Left] O2 Sat by Pulse 98 99 100 Oximetry 04/05/17 04/05/17 04/05/17 05:42 06:00 07:27 Temperature 98.4 F Pulse Rate 61 54 L Respiratory 18 24 Rate Blood Pressure 138/74 130/75 Blood Pressure 136/71 [Left] O2 Sat by Pulse 100 100 99 Oximetry 04/05/17 04/05/17 04/05/17 08:00 09:01 10:01 Temperature Pulse Rate 51 L 61 62 Respiratory 25 H 18 22 Rate Blood Pressure 129/65 116/72 115/76 Blood Pressure [Left] O2 Sat by Pulse 98 100 100 Oximetry 04/05/17 04/05/17 04/05/17 11:00 12:00 13:01 Temperature Pulse Rate 68 63 57 L Respiratory 18 23 25 H Rate Blood Pressure 142/83 136/76 132/81 Blood Pressure [Left] O2 Sat by Pulse 100 98 100 Oximetry 04/05/17 14:01 Temperature Pulse Rate 73 Respiratory 22 Rate Blood Pressure 138/80 Blood Pressure [Left] O2 Sat by Pulse 98 Oximetry - Reevaluation(s) Reevaluation #1: Patient was found to have significant transaminitis and hyperbilirubinemia. A CT of her abdomen was obtained and she was admitted by the hospitalist service. The CT showed some shyam-cholecystic fluid but no obvious inflammatory process. Personally I think cholecystitis is unlikely. I did send a hepatitis profile. The patient was admitted in stable condition for further evaluation. 04/05/17 15:17 ED Medical Decision Making - Lab Data Result diagrams: 04/04/17 18:20 04/04/17 18:20 Laboratory Results - last 24 hr 04/04/17 04/04/17 04/04/17 18:20 18:20 Unknown WBC 4.1 L RBC 4.84 Hgb 11.8 Hct 36.9 MCV 76 L MCH 24 L MCHC 32 RDW 19.2 H Plt Count 275 Lymph % (Auto) 32.6 [place] % (Auto) 10.0 H Eos % (Auto) 0.0 Baso % (Auto) 0.3 Lymph # 1.3 [place] # 0.4 Eos # 0.0 Baso # 0.0 Seg Neutrophils % 57.1 Seg Neutrophils # 2.4 PT INR APTT Sodium 138 Potassium 3.9 Chloride 100.1 Carbon Dioxide 23 Anion Gap 19 BUN 7 Creatinine 0.3 L Estimated GFR > 60 BUN/Creatinine Ratio 23 Glucose 107 H Calcium 9.2 Magnesium Total Bilirubin 6.20 H AST 1857 H ALT 2730 H Alkaline Phosphatase 227 H Ammonia Total Protein 7.5 Albumin 4.5 Albumin/Globulin Ratio 1.5 Lipase 53 Urine Color [place] Urine Turbidity Clear Urine pH 6.0 Ur Specific [place] 1.008 Urine Protein <15 mg/dl Urine Glucose (UA) Neg Urine Ketones Neg Urine Blood Neg Urine Nitrite Pos Urine Bilirubin Neg Urine Urobilinogen < 2.0 Ur Leukocyte Esterase Sm Urine WBC (Auto) 13.0 H Urine RBC (Auto) < 1.0 U Epithel Cells (Auto) 1.0 Urine Bacteria (Auto) 4+ Urine Mucus Few Hepatitis A IgM Ab Hep Bs Antigen Hep B Core IgM Ab Hepatitis C Antibody 04/05/17 04/05/17 04/05/17 07:24 07:24 07:24 WBC RBC Hgb Hct MCV MCH MCHC RDW Plt Count Lymph % (Auto) [place] % (Auto) Eos % (Auto) Baso % (Auto) Lymph # [place] # Eos # Baso # Seg Neutrophils % Seg Neutrophils # PT 13.9 INR 1.02 APTT 33.4 Sodium Potassium Chloride Carbon Dioxide Anion Gap BUN Creatinine Estimated GFR BUN/Creatinine Ratio Glucose Calcium Magnesium 1.90 Total Bilirubin AST ALT Alkaline Phosphatase Ammonia Total Protein Albumin Albumin/Globulin Ratio Lipase Urine Color Urine Turbidity Urine pH Ur Specific [place] Urine Protein Urine Glucose (UA) Urine Ketones Urine Blood Urine Nitrite Urine Bilirubin Urine Urobilinogen Ur Leukocyte Esterase Urine WBC (Auto) Urine RBC (Auto) U Epithel Cells (Auto) Urine Bacteria (Auto) Urine Mucus Hepatitis A IgM Ab Non-reactive Hep Bs Antigen Non-reactive Hep B Core IgM Ab Non-reactive Hepatitis C Antibody Non-reactive 04/05/17 07:24 WBC RBC Hgb Hct MCV MCH MCHC RDW Plt Count Lymph % (Auto) [place] % (Auto) Eos % (Auto) Baso % (Auto) Lymph # [place] # Eos # Baso # Seg Neutrophils % Seg Neutrophils # PT INR APTT Sodium Potassium Chloride Carbon Dioxide Anion Gap BUN Creatinine Estimated GFR BUN/Creatinine Ratio Glucose Calcium Magnesium Total Bilirubin AST ALT Alkaline Phosphatase Ammonia 29.0 Total Protein Albumin Albumin/Globulin Ratio Lipase Urine Color Urine Turbidity Urine pH Ur Specific [place] Urine Protein Urine Glucose (UA) Urine Ketones Urine Blood Urine Nitrite Urine Bilirubin Urine Urobilinogen Ur Leukocyte Esterase Urine WBC (Auto) Urine RBC (Auto) U Epithel Cells (Auto) Urine Bacteria (Auto) Urine Mucus Hepatitis A IgM Ab Hep Bs Antigen Hep B Core IgM Ab Hepatitis C Antibody - Radiology Data Radiology results: report reviewed Critical care attestation.: If time is entered above; I have spent that time in minutes in the direct care of this critically ill patient, excluding procedure time. ED Disposition Clinical Impression: Transaminitis, Hyperbilirubinemia Disposition: OP ADMIT IP TO THIS HOSP Is pt being admited?: Yes Does the pt Need Aspirin: No Time of Disposition: 15:19
--- NOTE | 2017-04-05 20:50 | Gastroenterology Consultation ---
History of Present Illness - Reason for Consult Consult date: 04/05/17 abnormal liver enzymes, jaundice Requesting physician: BISI DAMON - History of Present Illness Ms Royce Arana is a 36 yo female who presents with jaundice. Patient's daughter at bedside who helps provide history (also gathered from chart review). Patient has a h/o htn, otherwise no known medical problems, who started experiencing upper abdominal discomfort and pain with inspiration. She noticed eyes changing color ~3 days ago. She was instructed by PCP to go to ED today after clinic appt. She denies h/o known liver disease. Denies risk factors for viral hepatitis, recent travel, new medications, or alcohol intake. She does take ibuprofen on occasion, and may have had dose of tylenol but otherwise denies acetaminophen intake. No known family h/o liver disease. No change in mental status. Past History Past Medical History: hypertension Past Surgical History: No surgical history Social history: lives with family. denies: smoking, alcohol abuse Family history: hypertension Medications and Allergies Allergies Allergy/AdvReac Type Severity Reaction Status Date / Time No Known Allergies Allergy Verified 04/04/17 18:04 Home Medications Medication Instructions Recorded Confirmed Last Taken Type No Known Home Medications [No 04/05/17 04/05/17 Unknown History Reported Home Medications] Active Meds: Active Medications Bisacodyl (Dulcolax) 10 mg NM QDAY PRN PRN Reason: Constipation unrelieved by MOM Diphenhydramine HCl (Benadryl) 25 mg IV Q6H PRN PRN Reason: Itching Enoxaparin Sodium (Lovenox) 40 mg SUB-Q QDAY KOLBY Last Admin: 04/05/17 11:29 Dose: Not Given Sodium Chloride (Nacl 0.9% 1000 Ml) 1,000 mls @ 100 mls/hr IV DIRECT KOLBY Piperacillin Sod/Tazobactam Sod (Zosyn/Ns 4.5gm/100ml) 4.5 gm in 100 mls @ 200 mls/hr IV Q8HR KOLBY PRN Reason: Protocol Labetalol HCl (Normodyne) 100 mg PO BID KOLBY Ondansetron HCl (Zofran) 4 mg IM Q4H PRN PRN Reason: Nausea And Vomiting Review of Systems - Review of Systems All systems: negative (per HPI) Exam - Constitutional Vital Signs: Temp Pulse Resp BP Pulse Ox 98.4 F 73 22 138/80 98 04/05/17 05:42 04/05/17 14:01 04/05/17 14:01 04/05/17 14:01 04/05/17 14:01 General appearance: no acute distress - EENT Eyes: PERRL, EOM intact, scleral icterus ENT: hearing intact, clear oral mucosa - Neck Neck: supple, normal ROM - Respiratory Respiratory effort: normal Respiratory: bilateral: CTA - Cardiovascular Rhythm: regular Heart Sounds: Present: S1 & S2 Extremities: No edema, Full ROM - Gastrointestinal General gastrointestinal: Present: soft, non-tender, non-distended, normal bowel sounds - Integumentary Integumentary: Present: jaundice - Neurologic Neurological: alert and oriented x3 - Psychiatric Psychiatric: appropriate mood/affect - Labs CBC & Chem 7: 04/04/17 18:20 04/04/17 18:20 Lab Results: Laboratory Results - last 24 hr 04/05/17 16:50 Urine HCG, Qual Negative - Imaging CT Scan: report reviewed Assessment and Plan 1. Acute liver injury - unclear etiology. no signs of acute liver failure at this time (INR normal and no signs of encephalopathy). acute viral hep serologies negative. Will check acetaminophen level, auotimmune markers, and HSV serologies. She had complications in recent labor (delivered in December at 34 weeks, complications of severe htn), consider post-/ related liver injury if work-up negative. Obtain MRCP to r/o obstructive process. Monitor serial coags, trend liver enzymes, and mental status.
--- NOTE | 2017-04-05 21:45 | Consultation ---
History of Present Illness Consult date: 04/05/17 Reason for consult: other (elevated liver enzymes, PP, hx of elevated BP on labetolol ) History of present illness: This is a 36 yo LMP 03/31/17 came to ER after being seen in clinic for UTI. She states that she was dx with UTI and provider noticed that eyes were yellow and recommneded that the patient go to ER for evaluation. I was able to speak to patient through daughter as copier and printer field technician. She noticed pain on Right upper quadrant as she inspirates for the last 3 days. She also reports nausea and vomiting. She denies any headaches blurred vision. She reports pain as squeezing pain ranked as 5/10. Patient states that she had baby 01/16/[address] Cristina. Chart was re-evaluated and noted that she was given labetolol for HTN and started on Mag for PIH. She is currently 11 weeks PP . Past History Past Medical History: hypertension Past Surgical History: no surgical history Family/Genetic History: hypertension (mother) Social history: no significant social history, lives with family. denies: smoking, alcohol abuse, prescription drug abuse - Obstetrical History : 7 Medications and Allergies Allergies Allergy/AdvReac Type Severity Reaction Status Date / Time No Known Allergies Allergy Verified 04/04/17 18:04 Home Medications Medication Instructions Recorded Confirmed Last Taken Type No Known Home Medications [No 04/05/17 04/05/17 Unknown History Reported Home Medications] Active Meds: Active Medications Bisacodyl (Dulcolax) 10 mg LA QDAY PRN PRN Reason: Constipation unrelieved by MOM Diphenhydramine HCl (Benadryl) 25 mg IV Q6H PRN PRN Reason: Itching Enoxaparin Sodium (Lovenox) 40 mg SUB-Q QDAY KOLBY Last Admin: 04/05/17 11:29 Dose: Not Given Sodium Chloride (Nacl 0.9% 1000 Ml) 1,000 mls @ 100 mls/hr IV DIRECT KOLBY Piperacillin Sod/Tazobactam Sod (Zosyn/Ns 4.5gm/100ml) 4.5 gm in 100 mls @ 200 mls/hr IV Q8HR KOLBY PRN Reason: Protocol Labetalol HCl (Normodyne) 100 mg PO BID KOLBY Ondansetron HCl (Zofran) 4 mg IM Q4H PRN PRN Reason: Nausea And Vomiting Review of Systems All systems: negative Eyes: other (jaundice) Gastrointestinal: abdominal pain, nausea, vomiting, jaundice Genitourinary: deferred Rectal Exam: deferred Neurological: no seizures, no headaches, no double vision - Vital Signs Vital signs: Vital Signs Temp Pulse Resp BP Pulse Ox 99.5 F 72 18 128/81 98 04/04/17 18:04 04/04/17 18:04 04/04/17 18:04 04/04/17 18:04 04/04/17 18:04 Temp Pulse Resp BP Pulse Ox 98.4 F 62 20 151/73 100 04/05/17 19:20 04/05/17 19:20 04/05/17 19:20 04/05/17 19:20 04/05/17 19:20 - Physical Exam Breasts: Positive: deferred Cardiovascular: Regular rate, Normal S1 Lungs: Positive: Clear to auscultation, Normal air movement Abdomen: Positive: normal appearance, tenderness (right upper quadrant ), normal bowel sounds Genitourinary (Female): Positive: normal external genitalia, normal perenium Vulva: both: normal Uterus: Positive: normal size Anus/Rectum: Positive: normal perianal skin Extremities: Positive: normal Deep Tendon Reflex Grade: Normal +2 Results Result Diagrams: 04/04/17 18:20 04/04/17 18:20 All other labs normal. CT scan - abdomen: report reviewed Assessment and Plan A/P Hypertension on labetolol 200 mg QD Elevated liver enzymes acute injury ( doubt PIH greater than 6 weeks PP- 11 weeks PP rare presentation would consider Mag for 24 hr 4g and 2g with mag checks every 6 hrs ( rare incident of preeclampsia ) if GI agrees would not interfere in his mgt continue following GI recommendations appreciate consult
[2017-04-05] MEDS ORDERED: NORMODYNE PO SCH (22:00)
[2017-04-05 22:05] LABS: INR 1.02 (0.87-1.13)
[2017-04-05] MEDS: NORMODYNE PO SCH (23:16)
[2017-04-06] MEDS: ZOSYN/NS 4.5GM/100ML 4.5 GM/100 ML VIAL IV SCH ×4 (00:02→23:34)
[2017-04-06] MEDS: NACL 0.9% 1000 ML 1,000 ML IV SCH ×2 (00:03→16:38)
[2017-04-06 05:43] LABS: Basophils % (Auto) 0.3 % (0.0-1.8); Eosinophils % (Auto) 0.3 % (0.0-4.3); Hematocrit 34.4 % (30.3-42.9); Hemoglobin 11.5 gm/dl (10.1-14.3); Mean Corpuscular HGB Conc 34 % (30-34); Mean Corpuscular Volume 76 fl (79-97); Platelet Count 214 K/mm3 (140-440); Red Blood Count 4.53 M/mm3 (3.65-5.03); Red Cell Distribution Width 19.4 % (13.2-15.2); White Blood Count 4.6 K/mm3 (4.5-11.0)
[2017-04-06 05:44] LABS: Albumin 3.6 g/dL (3.9-5); Albumin/Globulin Ratio 1.1 %; Alkaline Phosphatase 203 units/L (35-129); Anion Gap 20 mmol/L; BUN/Creatinine Ratio 37; Blood Urea Nitrogen 11 mg/dL (7-17); Calcium 8.6 mg/dL (8.4-10.2); Carbon Dioxide 21 mmol/L (22-30); Chloride 104.8 mmol/L (98-107); Glucose 75 mg/dL (65-100); Potassium 3.4 mmol/L (3.6-5.0); Sodium 142 mmol/L (137-145); Total Protein 6.8 g/dL (6.3-8.2)
[2017-04-06 05:50] LABS: Mean Corpuscular Hemoglobin 26 pg (28-32)
[2017-04-06 05:56] LABS: Alanine Aminotransferase 2502 units/L (7-56)
[2017-04-06] MEDS: NORMODYNE PO SCH ×2 (09:50→23:56)
--- NOTE | 2017-04-06 09:50 | Gastroenterology Progress Note ---
Assessment and Plan GI: increase LFT's unclear etiology - MRI/MRCP today - awaiting other lab serologies (nancy etc) - continue conservative management - no signs liver failure - no changes at this time, will follow Subjective Date of service: 04/06/17 Principal diagnosis: no GI complaints overnight Objective - Constitutional Vitals: Temp Pulse Resp BP Pulse Ox 99.1 F 57 L 20 111/45 97 04/06/17 07:19 04/06/17 07:19 04/06/17 07:19 04/06/17 07:19 04/06/17 07:19 General appearance: no acute distress - Respiratory Respiratory: bilateral: CTA - Breasts Breasts: deferred - Cardiovascular Rhythm: regular Heart Sounds: Present: S1 & S2 - Gastrointestinal General gastrointestinal: Present: soft, non-tender - Labs CBC & Chem 7: 04/06/17 04:33 04/06/17 04:33 Labs: Laboratory Results - last 24 hr 04/05/17 04/05/17 04/05/17 16:50 21:18 21:18 WBC RBC Hgb Hct MCV MCH MCHC RDW Plt Count Lymph % (Auto) [place] % (Auto) Eos % (Auto) Baso % (Auto) Lymph # [place] # Eos # Baso # Seg Neutrophils % Seg Neutrophils # PT 13.9 INR 1.02 Carbon Dioxide BUN Creatinine Estimated GFR BUN/Creatinine Ratio Glucose Calcium Total Bilirubin AST ALT Alkaline Phosphatase Total Protein Albumin Albumin/Globulin Ratio Urine HCG, Qual Negative Acetaminophen < 15.0 04/06/17 04/06/17 04:33 04:33 WBC 4.6 RBC 4.53 Hgb 11.5 Hct 34.4 MCV 76 L MCH 26 L MCHC 34 RDW 19.4 H Plt Count 214 Lymph % (Auto) 28.7 [place] % (Auto) 10.7 H Eos % (Auto) 0.3 Baso % (Auto) 0.3 Lymph # 1.3 [place] # 0.5 Eos # 0.0 Baso # 0.0 Seg Neutrophils % 60.0 Seg Neutrophils # 2.7 PT INR Carbon Dioxide 21 L BUN 11 Creatinine 0.3 L Estimated GFR > 60 BUN/Creatinine Ratio 37 Glucose 75 Calcium 8.6 Total Bilirubin 8.20 H AST 1998 H ALT 2502 H Alkaline Phosphatase 203 H Total Protein 6.8 Albumin 3.6 L Albumin/Globulin Ratio 1.1 Urine HCG, Qual Acetaminophen
[2017-04-06] MEDS: LOVENOX SUB-Q SCH (09:51)
--- NOTE | 2017-04-06 12:21 | Magnetic Resonance Report ---
MRI ABDOMEN WITH MRCP: 04/06/17 20:44:00 CLINICAL: Abnormal liver enzymes. Acute liver injury. COMPARISON:CT abdomen and pelvis 04/05/17 TECHNIQUE: Axial T1 in phase and opposed phase, coronal and axial T2 and axial T2 fat sat sequences plus thin and thick slab MRCP sequences on a 1.5 Nataliia magnet. FINDINGS: Normal liver size, contour and signal. No liver mass. Contracted gallbladder with no stones. Normal intrahepatic and extra hepatic bile ducts. The pancreas is borderline enlarged with normal pancreatic duct. No peripancreatic fluid no pancreatic mass. Normal adrenal glands and kidneys. The renal collection systems and ureters are nondilated. The spleen is normal. Normal aorta and inferior vena cava. Imaged portions of small bowel and colon are normal. No ascites. IMPRESSION: 1. Normal liver. 2. Contracted gallbladder with no stones. No signs of acute cholecystitis. 3. No evidence of choledocholithiasis. 4. A borderline-enlarged pancreas but no signs of pancreatitis.
--- NOTE | 2017-04-06 13:00 | Nuclear Medicine Report ---
NUCLEAR MEDICINE HEPATOBILIARY SCAN: 04/06/17 14:33:00 CLINICAL: Elevated liver enzymes. Liver injury. TECHNIQUE: 5.0mCi technetium 99m Choletec was injected intravenously. Serial images were obtained up to 2 hours. FINDINGS: Activity in the liver and significant activity in the heart with no activity in the bile ducts, gallbladder or bowel. The study was carried out to 2 hours IMPRESSION: The absence of biliary activity with persistent cardiac uptake is consistent with hepatic failure.
[2017-04-06 15:04] LABS: Albumin 3.5 g/dL (3.9-5); Bilirubin,Direct 6.9 mg/dL (0-0.2); Bilirubin,Indirect 1.8 mg/dL; Bilirubin,Total 8.7 mg/dL (0.1-1.2); Total Protein 6.9 g/dL (6.3-8.2)
--- NOTE | 2017-04-06 16:17 | Progress Note ---
Assessment and Plan Assessment and Plan Assessment and plan: Patient is a 36 years old female with past medical history of hypertension and two month of who presents to the emergency department with chief complaint of Jaundice. Patient noticed days ago changed her eyes color to yellow and she was hoping that they will clear up eventually, but they get worst. Patient went yesterday to her primary care provider and was referred to [facility] for jaundice, hypertension, and increased bilirubin. Acute cholecystitis Contracted gallbladder with surrounding fluid. Acute cholecystitis Nothing by mouth IV fluid hydration Initiated empiric IV Zosyn contracted gallbladder with surrounding fluid. Acute cholecystitis HIDA scan ordered we will consider General surgery after findings. GI consulted Transaminitis Etiology unknown Closely monitor liver function GI consulted Jaundice and pruritis Secondary to Transaminitis Closely monitor liver function Benadryl for itching GI Consulted Hypertension. Continue on home antihypertensive medication Closely monitor blood pressure Status post Patient delivered two month ago OBGYN consulted DVT prophylaxis Lovenox Subjective Date of service: 04/06/17 Principal diagnosis: Transaminitis/Hepatitis Interval history: Sx better Objective - Constitutional Vitals: Vital Signs - 12hr 04/06/17 04/06/17 07:19 09:50 Temperature 99.1 F Pulse Rate 57 L Respiratory 20 Rate Blood Pressure 111/45 111/45 O2 Sat by Pulse 97 Oximetry General appearance: Present: no acute distress, well-nourished - EENT Eyes: PERRL, EOM intact ENT: hearing intact, clear oral mucosa Ears: bilateral: normal - Neck Neck: supple, normal ROM - Respiratory Respiratory effort: normal Respiratory: bilateral: CTA - Breasts Breasts: normal - Cardiovascular Rhythm: regular Heart Sounds: Present: S1 & S2. Absent: gallop, rub Extremities: pulses intact, No edema, normal color, Full ROM - Gastrointestinal General gastrointestinal: Present: soft, non-tender, non-distended, normal bowel sounds - Genitourinary Female genitourinary: normal - Integumentary Integumentary: clear, warm, dry - Musculoskeletal Musculoskeletal: 1, strength equal bilaterally - Neurologic Neurologic: moves all extremities - Psychiatric Psychiatric: memory intact, appropriate mood/affect, intact judgment & insight - Labs CBC & Chem 7: 04/07/17 05:26 04/07/17 05:26 Labs: Abnormal lab results 10/14/17 10/14/17 10/14/17 Range/Units 04:33 04:33 14:21 MCV 76 L (79-97) fl MCH 26 L (28-32) pg RDW 19.4 H (13.2-15.2) % [place] % (Auto) 10.7 H (0.0-7.3) % Carbon Dioxide 21 L (22-30) mmol/L Creatinine 0.3 L (0.7-1.2) mg/dL Total Bilirubin 8.20 H 8.70 H (0.1-1.2) mg/dL Direct Bilirubin 6.9 H (0-0.2) mg/dL AST 1997 H 1892 H (5-40) units/L ALT 2502 H 2414 H (7-56) units/L Alkaline Phosphatase 203 H 199 H (35-129) units/L Albumin 3.6 L 3.5 L (3.9-5) g/dL
[2017-04-07] MEDS: NACL 0.9% 1000 ML 1,000 ML IV SCH ×2 (04:35→15:21)
[2017-04-07] MEDS: ZOSYN/NS 4.5GM/100ML 4.5 GM/100 ML VIAL IV SCH ×3 (06:22→22:00)
[2017-04-07 06:30] LABS: Basophils % (Auto) 0.3 % (0.0-1.8); Eosinophils % (Auto) 0.1 % (0.0-4.3); Hematocrit 33.6 % (30.3-42.9); Hemoglobin 10.7 gm/dl (10.1-14.3); Mean Corpuscular HGB Conc 32 % (30-34); Mean Corpuscular Hemoglobin 24 pg (28-32); Mean Corpuscular Volume 76 fl (79-97); Platelet Count 208 K/mm3 (140-440); Red Blood Count 4.45 M/mm3 (3.65-5.03); Red Cell Distribution Width 19.9 % (13.2-15.2); White Blood Count 3.9 K/mm3 (4.5-11.0)
[2017-04-07 06:55] LABS: Albumin 3.7 g/dL (3.9-5); Albumin/Globulin Ratio 1.3 %; Alkaline Phosphatase 190 units/L (35-129); Anion Gap 17 mmol/L; BUN/Creatinine Ratio 40; Blood Urea Nitrogen 8 mg/dL (7-17); Carbon Dioxide 25 mmol/L (22-30); Chloride 102.6 mmol/L (98-107); Glucose 90 mg/dL (65-100); Potassium 3.6 mmol/L (3.6-5.0); Sodium 141 mmol/L (137-145); Total Protein 6.6 g/dL (6.3-8.2)
[2017-04-07 07:15] LABS: Alanine Aminotransferase 2117 units/L (7-56)
--- NOTE | 2017-04-07 09:31 | Gastroenterology Progress Note ---
Assessment and Plan Liver: acute liver injury unclear etiology - no labs signs liver failure at this time - awaiting ordered serologies - LFT's improving and if continue to do say may be able to d/c 1-2 days with follow up outpt - will consider liver bx based on progress but not at this time - will follow Subjective Date of service: 04/07/17 Principal diagnosis: no GI complaints overnight Interval history: - no GI or liver complaints overnight Objective - Constitutional Vitals: Temp Pulse Resp BP Pulse Ox 97.9 F 59 L 20 107/55 97 04/07/17 07:22 04/07/17 07:22 04/07/17 07:22 04/07/17 07:22 04/07/17 07:22 General appearance: no acute distress - Respiratory Respiratory: bilateral: CTA - Cardiovascular Rhythm: regular Heart Sounds: Present: S1 & S2 - Gastrointestinal General gastrointestinal: Present: soft, non-tender - Labs CBC & Chem 7: 04/07/17 05:26 04/07/17 05:26 Labs: Laboratory Results - last 24 hr 04/06/17 04/07/17 04/07/17 14:21 05:26 05:26 WBC RBC Hgb Hct MCV MCH MCHC RDW Plt Count Lymph % (Auto) [place] % (Auto) Eos % (Auto) Baso % (Auto) Lymph # [place] # Eos # Baso # Seg Neutrophils % Seg Neutrophils # Sodium 141 Potassium 3.6 Chloride 102.6 Carbon Dioxide 25 Anion Gap 17 BUN 8 Creatinine 0.2 L Estimated GFR > 60 BUN/Creatinine Ratio 40 Glucose 90 Calcium 9.0 Ferritin 115.0 Total Bilirubin 8.70 H 9.00 H Direct Bilirubin 6.9 H Indirect Bilirubin 1.8 AST 1892 H 1566 H ALT 2414 H 2117 H Alkaline Phosphatase 199 H 190 H Total Protein 6.9 6.6 Albumin 3.5 L 3.7 L Albumin/Globulin Ratio 1.0 1.3 TSH Monoscreen 04/07/17 04/07/17 04/07/17 05:26 05:26 05:26 WBC 3.9 L RBC 4.45 Hgb 10.7 Hct 33.6 MCV 76 L MCH 24 L MCHC 32 RDW 19.9 H Plt Count 208 Lymph % (Auto) 36.9 H [place] % (Auto) 10.3 H Eos % (Auto) 0.1 Baso % (Auto) 0.3 Lymph # 1.4 [place] # 0.4 Eos # 0.0 Baso # 0.0 Seg Neutrophils % 52.4 Seg Neutrophils # 2.0 Sodium Potassium Chloride Carbon Dioxide Anion Gap BUN Creatinine Estimated GFR BUN/Creatinine Ratio Glucose Calcium Ferritin Total Bilirubin Direct Bilirubin Indirect Bilirubin AST ALT Alkaline Phosphatase Total Protein Albumin Albumin/Globulin Ratio TSH 2.280 Monoscreen Negative
[2017-04-07] MEDS: NORMODYNE PO SCH ×2 (10:09→21:58)
[2017-04-07] MEDS: LOVENOX SUB-Q SCH (10:10)
[2017-04-07 11:04] LABS: Albumin 3.7 g/dL (3.9-5); Albumin/Globulin Ratio 1.4 %; Bilirubin,Direct 7.2 mg/dL (0-0.2); Bilirubin,Indirect 1.8 mg/dL; Total Protein 6.4 g/dL (6.3-8.2)
--- NOTE | 2017-04-07 21:20 | Progress Note ---
Assessment and Plan Assessment and Plan Assessment and plan: Patient is a 36 years old female with past medical history of hypertension and two month of who presents to the emergency department with chief complaint of Jaundice. Patient noticed days ago changed her eyes color to yellow and she was hoping that they will clear up eventually, but they get worst. Patient went yesterday to her primary care provider and was referred to [facility] for jaundice, hypertension, and increased bilirubin. Acute cholecystitis Contracted gallbladder with surrounding fluid. Acute cholecystitis Nothing by mouth IV fluid hydration Initiated empiric IV Zosyn contracted gallbladder with surrounding fluid. Acute cholecystitis HIDA scan ordered we will consider General surgery after findings. GI consulted Transaminitis Etiology unknown Closely monitor liver function GI consulted Assessment and Plan Assessment and plan: Patient is a 36 years old female with past medical history of hypertension and two month of who presents to the emergency department with chief complaint of Jaundice. Patient noticed days ago changed her eyes color to yellow and she was hoping that they will clear up eventually, but they get worst. Patient went yesterday to her primary care provider and was referred to [facility] for jaundice, hypertension, and increased bilirubin. Acute cholecystitis Contracted gallbladder with surrounding fluid. Acute cholecystitis Nothing by mouth IV fluid hydration Initiated empiric IV Zosyn contracted gallbladder with surrounding fluid. Acute cholecystitis HIDA scan ordered we will consider General surgery after findings. GI consulted Transaminitis Etiology unknown Closely monitor liver function GI consulted ALT/ASt improvingdown to to 2000 approx from around 2500 Status post Patient delivered two month ago OBGYN consulted Jaundice and pruritis Secondary to Transaminitis Closely monitor liver function Benadryl for itching Liver: acute liver injury unclear etiology - no labs signs of liver failure at this time - awaiting ordered serologies - LFT's improving and if continue to do say may be able to d/c 1-2 days with follow up outpt - Liver bx based on progress but not at this time - Hypertension. Continue on home antihypertensive medication Closely monitor blood pressure Status post Patient delivered two month ago OBGYN consulted DVT prophylaxis Lovenox Subjective Date of service: 04/07/17 Principal diagnosis: Transaminitis Interval history: Sx better Objective - Exam Narrative Exam: Lying comfortably,Feeding her - Constitutional Vitals: Vital Signs - 12hr 04/07/17 04/07/17 04/07/17 10:09 10:16 16:29 Temperature 98.4 F Pulse Rate 59 L 56 L Respiratory 17 20 Rate Blood Pressure 107/55 106/58 O2 Sat by Pulse 98 Oximetry 04/07/17 04/07/17 20:36 20:37 Temperature 98.7 F Pulse Rate 64 59 L Respiratory 22 22 Rate Blood Pressure 110/68 O2 Sat by Pulse 99 99 Oximetry General appearance: Present: no acute distress, well-nourished - EENT Eyes: PERRL, EOM intact ENT: hearing intact, clear oral mucosa Ears: bilateral: normal - Neck Neck: supple, normal ROM - Respiratory Respiratory effort: normal Respiratory: bilateral: CTA - Breasts Breasts: normal - Cardiovascular Heart rate: 76 Rhythm: regular Heart Sounds: Present: S1 & S2. Absent: gallop, rub Extremities: pulses intact, No edema, normal color, Full ROM - Gastrointestinal General gastrointestinal: Present: soft, non-tender, non-distended, normal bowel sounds - Genitourinary Female genitourinary: normal - Integumentary Integumentary: clear, warm, dry - Musculoskeletal Musculoskeletal: 1, strength equal bilaterally - Neurologic Neurologic: moves all extremities - Psychiatric Psychiatric: memory intact, appropriate mood/affect, intact judgment & insight - Labs CBC & Chem 7: 04/07/17 05:26 04/07/17 05:26 Labs: Abnormal lab results 04/07/17 04/07/17 04/07/17 Range/Units 05:26 05:26 05:36 WBC 3.9 L (4.5-11.0) K/mm3 MCV 76 L (79-97) fl MCH 24 L (28-32) pg RDW 19.9 H (13.2-15.2) % Lymph % (Auto) 36.9 H (13.4-35.0) % [place] % (Auto) 10.3 H (0.0-7.3) % Creatinine 0.2 L (0.7-1.2) mg/dL Total Bilirubin 9.00 H 9.00 H (0.1-1.2) mg/dL Direct Bilirubin 7.2 H (0-0.2) mg/dL AST 1566 H 1580 H (5-40) units/L ALT 2117 H 2158 H (7-56) units/L Alkaline Phosphatase 190 H 191 H (35-129) units/L Albumin 3.7 L 3.7 L (3.9-5) g/dL
[2017-04-07] MEDS ORDERED: DULCOLAX PO PRN (22:30)
[2017-04-08] MEDS: NACL 0.9% 1000 ML 1,000 ML IV SCH ×2 (03:35→23:14)
[2017-04-08] MEDS: ZOSYN/NS 4.5GM/100ML 4.5 GM/100 ML VIAL IV SCH ×3 (06:12→22:15)
--- NOTE | 2017-04-08 08:44 | Progress Note ---
Assessment and Plan Assessment and plan: Patient is a 36 years old female with past medical history of hypertension and two month of who presents to the emergency department with chief complaint of Jaundice. Patient noticed days ago changed her eyes color to yellow and she was hoping that they will clear up eventually, but they get worst. Patient went yesterday to her primary care provider and was referred to [facility] for jaundice, hypertension, and increased bilirubin. She also reported severe pruritis for the past 3 days. Patient two month with 8 month premature healthy baby, she stated that she had UTI and hypertension while in . She defines abdominal pain at present time.She denies a recent history of fever, diarrhea, hemoptysis, melena, or hematochezia. She denies a known history of hemorrhoids, diverticulitis, colon cancer, peptic ulcer disease, gastritis, acid reflux, gall bladder disease or cholelithiasis. She denies a history of smoking or alcohol consumption. Acute Liver Injury with transaminitis -Etiology unknown. Contracted gallbladder with surrounding fluid. 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 doubt Post Liver failiure or Eclampsia. LFT trending down, HIDA scan was concerning for Liver failure, but MRI was normal, GI disagrees with Liver failure and will like patient to have outpatient repeat labs in 3 DAYS. No infectious pathology, Will discharge in Am if patient continues to improve. Status post Patient delivered two month ago OBGYN consulted Jaundice and pruritis Secondary to Transaminitis Closely monitor liver function Benadryl for itching Hypertension. Continue on home antihypertensive medication Closely monitor blood pressure dvt /GI prophy Plan of care discussed in detail with the patient. History Interval history: Patient seen and examined, in no acute distress, No abdominal pain. Hospitalist Physical - Physical exam Narrative exam: VITAL SIGNS: Reviewed. GENERAL: The patient appeared well nourished and normally developed. Vital signs as documented. HEAD: No signs of head trauma. EYES: Pupils are equal. Extraocular motions intact. Sclera icterus. Improved from admission. EARS: Hearing grossly intact. MOUTH: Oropharynx is normal. NECK: No adenopathy, no JVD. CHEST: Chest with clear breath sounds bilaterally. No wheezes, rales, or rhonchi. CARDIAC: Regular rate and rhythm. S1 and S2, without murmurs, gallops, or rubs. VASCULAR: No Edema. Peripheral pulses normal and equal in all extremities. ABDOMEN: Soft, without detectable tenderness. No sign of distention. No rebound or guarding, and no masses palpated. Bowel Sounds normal. MUSCULOSKELETAL: Good range of motion of all major joints. Extremities without clubbing, cyanosis or edema. NEUROLOGIC EXAM: Alert and oriented x 3. No focal sensory or strength deficits. Speech normal. Follows commands. PSYCHIATRIC: Mood normal. SKIN: Jaundice - Constitutional Vitals: Temp Pulse Resp BP Pulse Ox 98.7 F 54 L 20 103/37 97 04/08/17 07:24 04/08/17 07:24 04/08/17 07:24 04/08/17 07:24 04/08/17 07:24 General appearance: Present: no acute distress, well-nourished Results - Labs CBC & Chem 7: 04/09/17 03:49 04/09/17 03:49 Labs: Laboratory Last Values WBC 3.9 K/mm3 (4.5-11.0) L 04/07/17 05:26 RBC 4.45 M/mm3 (3.65-5.03) 04/07/17 05:26 Hgb 10.7 gm/dl (10.1-14.3) 04/07/17 05:26 Hct 33.6 % (30.3-42.9) 04/07/17 05:26 MCV 76 fl (79-97) L 04/07/17 05:26 MCH 24 pg (28-32) L 04/07/17 05:26 MCHC 32 % (30-34) 04/07/17 05:26 RDW 19.9 % (13.2-15.2) H 04/07/17 05:26 Plt Count 208 K/mm3 (140-440) 04/07/17 05:26 Lymph % (Auto) 36.9 % (13.4-35.0) H 04/07/17 05:26 Alexander % (Auto) 10.3 % (0.0-7.3) H 04/07/17 05:26 Eos % (Auto) 0.1 % (0.0-4.3) 04/07/17 05:26 Baso % (Auto) 0.3 % (0.0-1.8) 04/07/17 05:26 Lymph # 1.4 K/mm3 (1.2-5.4) 04/07/17 05:26 Alexander # 0.4 K/mm3 (0.0-0.8) 04/07/17 05:26 Eos # 0.0 K/mm3 (0.0-0.4) 04/07/17 05:26 Baso # 0.0 K/mm3 (0.0-0.1) 04/07/17 05:26 Seg Neutrophils % 52.4 % (40.0-70.0) 04/07/17 05:26 Seg Neutrophils # 2.0 K/mm3 (1.8-7.7) 04/07/17 05:26 PT 13.9 Sec. (12.2-14.9) 04/05/17 21:18 INR 1.02 (0.87-1.13) 04/05/17 21:18 APTT 33.4 Sec. (24.2-36.6) 04/05/17 07:24 Sodium 141 mmol/L (137-145) 04/07/17 05:26 Potassium 3.6 mmol/L (3.6-5.0) 04/07/17 05:26 Chloride 102.6 mmol/L (98-107) 04/07/17 05:26 Carbon Dioxide 25 mmol/L (22-30) 04/07/17 05:26 Anion Gap 17 mmol/L 04/07/17 05:26 BUN 8 mg/dL (7-17) 04/07/17 05:26 Creatinine 0.2 mg/dL (0.7-1.2) L 04/07/17 05:26 Estimated GFR > 60 ml/min 04/07/17 05:26 BUN/Creatinine Ratio 40 % 04/07/17 05:26 Glucose 90 mg/dL (65-100) 04/07/17 05:26 Calcium 9.0 mg/dL (8.4-10.2) 04/07/17 05:26 Magnesium 1.90 mg/dL (1.7-2.3) 04/05/17 07:24 Ferritin 115.0 ng/mL (13.0-400.0) 04/07/17 05:26 Total Bilirubin 9.00 mg/dL (0.1-1.2) H 04/07/17 05:36 Direct Bilirubin 7.2 mg/dL (0-0.2) H 04/07/17 05:36 Indirect Bilirubin 1.8 mg/dL 04/07/17 05:36 AST 1580 units/L (5-40) H 04/07/17 05:36 ALT 2158 units/L (7-56) H 04/07/17 05:36 Alkaline Phosphatase 191 units/L (35-129) H 04/07/17 05:36 Ammonia 29.0 umol/L (25-60) 04/05/17 07:24 Total Protein 6.4 g/dL (6.3-8.2) 04/07/17 05:36 Albumin 3.7 g/dL (3.9-5) L 04/07/17 05:36 Albumin/Globulin Ratio 1.4 % 04/07/17 05:36 Lipase 53 units/L (13-60) 04/04/17 18:20 TSH 2.280 mlU/mL (0.270-4.200) 04/07/17 05:26 Urine Color June (Yellow) 04/04/17 Unknown Urine Turbidity Clear (Clear) 04/04/17 Unknown Urine pH 6.0 (5.0-7.0) 04/04/17 Unknown Ur Specific Townsend 1.008 (1.003-1.030) 04/04/17 Unknown Urine Protein <15 mg/dl mg/dL (Negative) 04/04/17 Unknown Urine Glucose (UA) Neg mg/dL (Negative) 04/04/17 Unknown Urine Ketones Neg mg/dL (Negative) 04/04/17 Unknown Urine Blood Neg (Negative) 04/04/17 Unknown Urine Nitrite Pos (Negative) 04/04/17 Unknown Urine Bilirubin Neg (Negative) 04/04/17 Unknown Urine Urobilinogen < 2.0 mg/dL (<2.0) 04/04/17 Unknown Ur Leukocyte Esterase Sm (Negative) 04/04/17 Unknown Urine WBC (Auto) 13.0 /HPF (0.0-6.0) H 04/04/17 Unknown Urine RBC (Auto) < 1.0 /HPF (0.0-6.0) 04/04/17 Unknown U Epithel Cells (Auto) 1.0 /HPF (0-13.0) 04/04/17 Unknown Urine Bacteria (Auto) 4+ /HPF (Negative) 04/04/17 Unknown Urine Mucus Few /HPF 04/04/17 Unknown Urine HCG, Qual Negative (Negative) 04/05/17 16:50 Acetaminophen < 15.0 ug/mL (10.0-30.0) 04/05/17 21:18 Hepatitis A IgM Ab Non-reactive (NonReactive) 04/05/17 07:24 Hep Bs Antigen Non-reactive (Negative) 04/05/17 07:24 Hep B Core IgM Ab Non-reactive (NonReactive) 04/05/17 07:24 Hepatitis C Antibody Non-reactive (NonReactive) 04/05/17 07:24 Monoscreen Negative (Negative) 04/07/17 05:26
[2017-04-08] MEDS: NORMODYNE PO SCH (10:40)
[2017-04-08] MEDS: LOVENOX SUB-Q SCH (10:43)
[2017-04-08 10:54] LABS: Albumin 3.5 g/dL (3.9-5); Albumin/Globulin Ratio 1.3 %; Bilirubin,Direct 7.4 mg/dL (0-0.2); Bilirubin,Indirect 1.6 mg/dL; Total Protein 6.3 g/dL (6.3-8.2)
--- NOTE | 2017-04-08 16:01 | Gastroenterology Progress Note ---
Assessment and Plan 1.acute liver injury -etiology unclear- possibly related to complications in recent labor (HTN) -acute viral hep serologies, acetaminophen level, and MRCP negative -autoimmune markers pending -LFTs continue improving -no signs of acute liver failure at this time -will consider liver bx based on progress but not at this time -pt is okay to be d/c per GI standpoint with f/u LFTs drawn by Saturday this week at our office or at PCP office -pt will need a f/u appt in clinic in 2 weeks -office information and card given to pt -will sign off Subjective Date of service: 04/08/17 Principal diagnosis: Transaminitis Interval history: Patient sitting in bed. No acute distress. Family at bedside. No acute events overnight or this am. Objective - Constitutional Vitals: Temp Pulse Resp BP Pulse Ox 98.7 F 54 L 20 103/37 97 04/08/17 07:24 04/08/17 07:24 04/08/17 07:24 04/08/17 07:24 04/08/17 07:24 General appearance: no acute distress - Respiratory Respiratory: bilateral: CTA - Cardiovascular Rhythm: regular Heart Sounds: Present: S1 & S2 - Extremities Extremities: No edema - Gastrointestinal General gastrointestinal: Present: soft, non-tender, non-distended, normal bowel sounds - Integumentary Integumentary: Present: warm, dry, jaundice - Neurologic Neurological: alert and oriented x3 - Labs CBC & Chem 7: 04/07/17 05:26 04/07/17 05:26 Labs: Laboratory Results - last 24 hr 04/08/17 10:03 Total Bilirubin 9.00 H Direct Bilirubin 7.4 H Indirect Bilirubin 1.6 AST 1410 H ALT 1928 H Alkaline Phosphatase 175 H Total Protein 6.3 Albumin 3.5 L Albumin/Globulin Ratio 1.3
[2017-04-09] MEDS: NORMODYNE PO SCH ×2 (00:25→10:44)
[2017-04-09] MEDS: ZOSYN/NS 4.5GM/100ML 4.5 GM/100 ML VIAL IV SCH (05:43)
[2017-04-09 06:09] LABS: Hemoglobin 10.5 gm/dl (10.1-14.3); Mean Corpuscular HGB Conc 32 % (30-34); Mean Corpuscular Volume 76 fl (79-97); Platelet Count 192 K/mm3 (140-440); Red Blood Count 4.35 M/mm3 (3.65-5.03); White Blood Count 4.6 K/mm3 (4.5-11.0)
[2017-04-09 06:14] LABS: Mean Corpuscular Hemoglobin 24 pg (28-32); Red Cell Distribution Width 20.5 % (13.2-15.2)
[2017-04-09 06:20] LABS: INR 1.16 (0.87-1.13)
[2017-04-09 07:30] LABS: Albumin 3.2 g/dL (3.9-5); Albumin/Globulin Ratio 1.1 %; Alkaline Phosphatase 164 units/L (35-129); BUN/Creatinine Ratio 15; Blood Urea Nitrogen 3 mg/dL (7-17); Calcium 8.5 mg/dL (8.4-10.2); Carbon Dioxide 18 mmol/L (22-30); Chloride 102.8 mmol/L (98-107); Glucose 79 mg/dL (65-100); Potassium 3.8 mmol/L (3.6-5.0); Sodium 138 mmol/L (137-145)
[2017-04-09 07:43] LABS: Alanine Aminotransferase 1794 units/L (7-56); Anion Gap 21 mmol/L
[2017-04-09 07:54] VITALS: BP 135/88
--- NOTE | 2017-04-09 09:46 | Discharge Summary ---
Providers - Providers Date of Admission: 04/05/17 09:32 Date of discharge: 04/09/17 Attending physician: MAC NARVAEZ MD 04/05/17 09:57 Consult to Physician [CONS] Routine Consulting Provider: BON HORNE Reason For Exam: transaminitis and jaundice Place consult to:: office Notified:: yes Phone number called:: [phone] Was contact made?: Yes If yes, spoke with:: Silvio Time called:: 16:19 04/05/17 15:05 Consult to Physician [CONS] Routine Consulting Provider: EMEKA TURNER Reason For Exam: Place consult to:: answering service Notified:: yes Phone number called:: [phone] Was contact made?: Yes If yes, spoke with:: Nury Time called:: 16:26 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 Patient noticed days ago changed her eyes color to yellow and she was hoping that they will clear up eventually, but they get worst. Patient went yesterday to her primary care provider and was [facility], hypertension, and increased bilirubin. She also reported severe pruritis for the past 3 days. Patient two month with 8 month premature healthy baby, she stated that she had UTI and hypertension while in . She defines abdominal pain at present time.She denies a recent history of fever, diarrhea, hemoptysis, melena, or hematochezia. She denies a known history of hemorrhoids, diverticulitis, colon cancer, peptic ulcer disease, gastritis, acid reflux, gall bladder disease or cholelithiasis. She denies a history of smoking or alcohol consumption. Acute Liver Injury with transaminitis -Etiology unknown. Contracted gallbladder with surrounding fluid. 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 doubt Post Liver failiure or Eclampsia. LFT trending down, HIDA scan was concerning for Liver failure, but MRI was normal, GI disagrees with Liver failure and will like patient to have outpatient repeat labs in 3 DAYS. No infectious pathology, Patient clinically stable and will be discharged today Status post Patient delivered two month ago OBGYN consulted Jaundice and pruritis Secondary to Transaminitis Closely monitor liver function Benadryl for itching Hypertension Resume Home BP. BP was 200mg po bid, will decrease to 100mg po BID Bradycardia * decreased Beta tomasa dose Plan of care discussed in detail with the patient and family. Disposition: DC-01 TO HOME OR SELFCARE Time spent for discharge: 35 MINS Core Measure Documentation - Palliative Care Palliative Care/ Comfort Measures: Not Applicable - Core Measures Any of the following diagnoses?: none - VTE Discharge Requirements Deep Vein Thrombosis/Pulmonary Embolism Present on Admission: No Exam - Physical Exam Narrative exam: VITAL SIGNS: Reviewed. GENERAL: The patient appeared well nourished and normally developed. Vital signs as documented. HEAD: No signs of head trauma. EYES: Pupils are equal. Extraocular motions intact. Sclera icterus. Improved from admission. EARS: Hearing grossly intact. MOUTH: Oropharynx is normal. NECK: No adenopathy, no JVD. CHEST: Chest with clear breath sounds bilaterally. No wheezes, rales, or rhonchi. CARDIAC: Regular rate and rhythm. S1 and S2, without murmurs, gallops, or rubs. VASCULAR: No Edema. Peripheral pulses normal and equal in all extremities. ABDOMEN: Soft, without detectable tenderness. No sign of distention. No rebound or guarding, and no masses palpated. Bowel Sounds normal. MUSCULOSKELETAL: Good range of motion of all major joints. Extremities without clubbing, cyanosis or edema. NEUROLOGIC EXAM: Alert and oriented x 3. No focal sensory or strength deficits. Speech normal. Follows commands. PSYCHIATRIC: Mood normal. SKIN: Jaundice - Constitutional Vitals: Temp Pulse Resp BP Pulse Ox 98.4 F 55 L 15 135/88 98 04/09/17 07:52 04/09/17 07:52 04/09/17 07:52 04/09/17 07:52 04/09/17 07:52 Plan Activity: advance as tolerated, fall precautions Diet: low fat Special Instructions: record daily BP diary, other (AVOID ACETAMINOPHINE TYPE MEDS) Additional Instructions: MUST HAVE REPEAT LABS ON Saturday04/12/17 AT THE GI doctors office. Follow up with: WALTER STEPHENS MD [Primary Care Provider] - 7 Days EMEKA TURNER MD [Staff Physician] - 7 Days ALBERT TURNER MD [Staff Physician] - 04/12/17 Prescriptions: Labetalol [Normodyne TAB] 100 mg PO BID #60 tablet
[2017-04-09] MEDS: LOVENOX SUB-Q SCH (10:44)
[2017-04-09 11:02] LABS: Albumin 3.6 g/dL (3.9-5); Albumin/Globulin Ratio 1.3 %; Bilirubin,Direct 8.2 mg/dL (0-0.2); Bilirubin,Indirect 2.3 mg/dL; Bilirubin,Total 10.5 mg/dL (0.1-1.2); Total Protein 6.4 g/dL (6.3-8.2)
== END 2017-04-09 15:15 | disposition home or self-care (01) | DRG 445 ==
LOC: ED 17:07 → 3A 04-05 09:32
PROVIDERS: ADMIT Internal Medicine; ATTEND Internal Medicine
DX: K81.0 Acute cholecystitis (principal); S36.119A Unspecified injury of liver, initial encounter; R74.0 Nonspecific elevation of levels of transaminase and lactic acid dehydrogenase [LDH]; I10 Essential (primary) hypertension; L29.9 Pruritus, unspecified; R00.1 Bradycardia, unspecified
CPT/HCPCS: 36415; 74177; 74181; 78226; 80053; 80074; 80320; 81001; 81025; 82140; 82390; 82728; 83520; 83690; 83735; 84443; 85025; 85027; 85610; 85730; 86038; 86235; 86308; 86695; A9537; G0480; J1650; J2543; J7030; Q9967